=== PATIENT | male | born 1990 | race Caucasian/White ===

== ENCOUNTER 2023-06-10 07:46 | Emergency (ER) | payer OTHER ==
[~2023-06-10] VITALS: Ht 172.7 cm; Wt 104.0 kg
[2023-06-10] MEDS ORDERED: PROPOFOL 200MG/20ML VIAL IV ONE (08:45)
[2023-06-10] MEDS ORDERED: KETAMINE HCL 50 MG/ML 10ML IV ONE (08:45)
[2023-06-10 09:50] VITALS: O2SAT 100
[2023-06-10] MEDS ORDERED: IBUP-2029 MT (11:24)
[2023-06-10 11:50] VITALS: BP 112/74; PULSE 76; RESP 16; TEMP 98.3
== END 2023-06-10 11:50 | disposition home or self-care (01) ==
LOC: ER 07:46
DX: S43.004A Unspecified dislocation of right shoulder joint, initial encounter (principal); F12.10 Cannabis abuse, uncomplicated; J45.909 Unspecified asthma, uncomplicated; Z98.890 Other specified postprocedural states; X58.XXXA Exposure to other specified factors, initial encounter; Y93.89 Activity, other specified; Y92.89 Other specified places as the place of occurrence of the external cause; Y99.8 Other external cause status
CPT/HCPCS: 73030; 23650; 99152; 99285; J3490; J2704; Z7610 ×3; A4565